=== PATIENT | female | born 2005 | race Caucasian/White ===

== ENCOUNTER 2023-04-17 08:06 | Emergency (ER) | payer OTHER ==
[~2023-04-17] VITALS: Ht 160 cm; Wt 87.7 kg
[2023-04-17 08:11] VITALS: TEMP 98.3
[2023-04-17] MEDS ORDERED: LIDOCAINE 1% 10 ML VIAL SQ ONE (08:30)
[2023-04-17 09:34] VITALS: BP 128/78; PULSE 80; RESP 16
== END 2023-04-17 09:35 | disposition home or self-care (01) ==
LOC: EMS 08:08
DX: S61.412A Laceration without foreign body of left hand, initial encounter (principal); F17.210 Nicotine dependence, cigarettes, uncomplicated; F12.90 Cannabis use, unspecified, uncomplicated; W26.8XXA Contact with other sharp object(s), not elsewhere classified, initial encounter; Y93.89 Activity, other specified; Y92.89 Other specified places as the place of occurrence of the external cause; Y99.8 Other external cause status
CPT/HCPCS: 99282; 12002; J3490